=== PATIENT | male | born 1980 | race Hispanic/Latino ===

== ENCOUNTER 2021-06-15 23:58 | Emergency (ER) | payer OTHER ==
[2021-06-16 00:41] LABS: BASOPHILS % (AUTO) 0.4 % (0.0-5.0); EOSINOPHILS % (AUTO) 2.3 % (0.0-8.0); HEMATOCRIT 40.8 % (42-54); LYMPHOCYTES % (AUTO) 20.9 % (21.0-51.0); MEAN CORPUSCULAR HEMOGLOBIN 29.9 pg (27.0-33.0); MEAN CORPUSCULAR HGB CONC 34.8 g/dL (32.0-36.0); MEAN CORPUSCULAR VOLUME 85.9 fL (79-99); MONOCYTES % (AUTO) 11.4 % (3.0-13.0); NEUTROPHILS % (AUTO) 64.7 % (40.0-77.0); PLATELET COUNT (AUTO) 273 K/uL (130-400); RED BLOOD CELL COUNT(AUTO) 4.75 MIL/uL (4.50-6.20); RED CELL DISTRIBUTION WIDTH 12.5 % (11.0-15.5); WHITE BLOOD COUNT (AUTO) 9.8 K/uL (4.8-10.8)
[2021-06-16 00:43] LABS: ALBUMIN 4.2 g/dL (3.5-5.0); BILIRUBIN,TOTAL 0.9 mg/dL (0.2-1.0); TOTAL PROTEIN, SERUM 7.8 g/dL (6.0-8.3)
[2021-06-16 00:45] LABS: POTASSIUM 2.9 mmol/L (3.5-5.1)
[2021-06-16] MEDS: KCL 20 MEQ ERTAB PO ONE (01:05)
[2021-06-16 01:18] VITALS: BP_SYST 137; BP_SYST 147; BP_DIAS 68
[2021-06-16 01:20] LABS: AMPHET/METH SCREEN,URINE NEGATIVE (NEGATIVE); BARBITURATE SCREEN, URINE NEGATIVE (NEGATIVE); BENZODIAZEPINES SCREEN,URINE NEGATIVE (NEGATIVE); CANNABINOID SCREEN,URINE NEGATIVE (NEGATIVE); COCAINE SCREEN,URINE NEGATIVE (NEGATIVE); OPIATE SCREEN,URINE NEGATIVE (NEGATIVE); PHENCYCLIDINE SCREEN,URINE NEGATIVE (NEGATIVE)
[2021-06-16] MEDS: HYDROXYZINE 100MG/2ML VIAL IM SCH (02:30)
[2021-06-16] MEDS: HYDROXYZINE 25 MG TABLET PO ONE (03:35)
[2021-06-16] MEDS: HYDROXYZINE 25 MG TABLET ONE (03:36)
[2021-06-16 03:42] VITALS: BP 143/66
== END 2021-06-16 03:43 | disposition home or self-care (01) ==
LOC: EDH 23:58
DX: F44.5 Conversion disorder with seizures or convulsions (principal); F45.8 Other somatoform disorders; I10 Essential (primary) hypertension; F41.9 Anxiety disorder, unspecified; Z20.822 Contact with and (suspected) exposure to COVID-19; Z79.899 Other long term (current) drug therapy
CPT/HCPCS: 36415; 80053; 80305; 84484; 85025; 86140; 87426; 87804; 87880; 93005; J3410